=== PATIENT | male | born 1960 | race Caucasian/White ===

== ENCOUNTER → 2017-10-10 | Outpatient (CLI) | payer OTHER ==
[2017-03-27 14:43] VITALS: BP 157/79
--- NOTE | 2017-10-10 12:26 | RAD ---
Exam: Left shoulder three views History: 57-year-old male with left shoulder pain Comparison: None Findings: Hypertrophic degenerative changes are noted at the left acromioclavicular joint. The glenoh umeral joint is normal. Remainder the exam is unremarkable with no other sign of significant degenera tive change or acute bony abnormality. Impression: Degenerative changes are noted at the left acromioclavicular joint. Remainder the exam is unremarkable however. Reported By:
--- NOTE | 2017-10-10 13:31 | RAD ---
Exam: Cervical spine History: 57-year-old male with neck pain. Comparison: None. Technique: AP, lateral, and oblique views of the cervical spine were obtained. Findings: Cervical vertebral bodies are normally aligned. Moderate narrowing of the C5-6 disc space i s seen. This is associated with prominent anterior osteophytes. The other cervical disc spaces are ma intained. On the oblique views, neural foramina are patent with no sign of significant bony impingeme nt on either side. No acute bony abnormality is seen on this exam. Impression: Degenerative disc disease particularly at the C5-6 level. Reported By:
== END | disposition home or self-care (01) | DRG 556 ==
LOC: RAD 12:03
PROVIDERS: ATTEND Internal Medicine
DX: M25.512 Pain in left shoulder (principal); M50.322 Other cervical disc degeneration at C5-C6 level
CPT/HCPCS: 72050; 73030